=== PATIENT | female | born 2000 | race Caucasian/White ===

== ENCOUNTER 2022-07-18 17:33 | Emergency (ER) | payer OTHER, MEDICAID ==
[~2022-07-18] VITALS: Ht 175.3 cm; Wt 63.6 kg
[2022-07-18 17:41] VITALS: TEMP 98.3
[2022-07-18] MEDS ORDERED: FLEXERIL 1010 MG/TAB PO (18:25)
[2022-07-18 18:57] VITALS: BP 156/70; PULSE 76
== END 2022-07-18 18:57 | disposition home or self-care (01) ==
LOC: COL.ER 17:33
DX: S13.4XXA Sprain of ligaments of cervical spine, initial encounter (principal); S60.212A Contusion of left wrist, initial encounter; S50.812A Abrasion of left forearm, initial encounter; F17.290 Nicotine dependence, other tobacco product, uncomplicated; Z28.310 Unvaccinated for COVID-19; V49.40XA Driver injured in collision with unspecified motor vehicles in traffic accident, initial encounter; Y92.410 Unspecified street and highway as the place of occurrence of the external cause
CPT/HCPCS: J1885